=== PATIENT | male | born 1985 | race Caucasian/White ===

== ENCOUNTER 2023-01-08 04:56 | Emergency (ER) | payer MEDICAID ==
[~2023-01-08] VITALS: Ht 167.6 cm; Wt 95.3 kg
--- NOTE | 2023-01-08 05:00 | NUR ---
Patient to ER bed 08 to gown for evaluation. Side rails up. Report given to BYRON DOMINGO.
[2023-01-08 05:07] VITALS: BP_SYST 159
--- NOTE | 2023-01-08 05:12 | NUR ---
DR. HIDALGO AT BEDSIDE WITH PATIENT FOR MSE.
[2023-01-08] MEDS ORDERED: ONDANSETRON HCL 4 MG/2 ML VIAL IVP ONE (05:15)
[2023-01-08] MEDS ORDERED: NACL 0.9% 1,000 ML IV ONE (05:15)
[2023-01-08] MEDS ORDERED: MORPHINE 4 MG INJ. 4 MG/ML VIAL IVP ONE (05:15)
--- NOTE | 2023-01-08 05:28 | NUR ---
BLOOD COLLECTED AND WALKED OVER TO LAB.
--- NOTE | 2023-01-08 05:34 | NUR ---
# 20 gauge angiocath placed to RAC. Use of asceptic technique. Opsite placed over site. Blood return noted. Blood for lab drawn from site. Flushed with 10 cc of normal saline. No evidence of infiltration noted. Patient tolerated well.
--- NOTE | 2023-01-08 05:39 | NUR ---
PT PRESENTS TO ED C/O ABD PAIN, NAUSEA, LOSS OF APPETITE, VOMITTING, BRIGHT RED BLOOD MIXED IN STOOL, PT STATES HE HAS HX OF PANCREATITIS AND STATED HE COULD NOT SLEEP DUE TO THE DISCOMFORT AND WAS GOING TO SEE HIS PCP TODAY BUT HE KNEW HE WOULD POSSIBLY END UP ADMITTED. VSS, HOOKED UP TO VS MONITOR. ON APPEARANCE PT HAS BRUISES UNDER BOTH EYES AND BLOOD SHOT AND STATED HE WAS IN SITUATION LAST WEEK AND DID NOT WANT TO MENTION ANYTHING ELSE.
[2023-01-08 05:40] LABS: BASOPHILS # (AUTO) 0.1 K/uL (0.0-0.2); BASOPHILS % (AUTO) 1.1 % (0.0-2.0); EOSINOPHILS # (AUTO) 0.2 K/uL (0.0-0.4); EOSINOPHILS % (AUTO) 1.9 % (0.0-4.0); HEMATOCRIT 46.2 % (36-54); HEMOGLOBIN 15.9 g/dL (14.0-18.0); LYMPHOCYTES # (AUTO) 3.5 K/uL (1.0-5.5); LYMPHOCYTES % (AUTO) 41.1 % (20.5-51.5); MEAN CORPUSCULAR HEMOGLOBIN 31 pg (27-31); MEAN CORPUSCULAR HGB CONC 34 % (32-36); MEAN CORPUSCULAR VOLUME 91 fL (79.0-98.0); MONOCYTES # (AUTO) 0.8 K/uL (0.0-1.0); MONOCYTES % (AUTO) 9.4 % (1.7-9.3); NEUTROPHILS % (AUTO) 46.5 % (40.0-70.0); PLATELET COUNT (AUTO) 206 K/uL (130-430); RED BLOOD CELL COUNT(AUTO) 5.07 MIL/uL (4.2-6.2); RED CELL DISTRIBUTION WIDTH 13.6 % (9.0-15.0); WHITE BLOOD COUNT (AUTO) 8.6 K/uL (4.8-10.8)
--- NOTE | 2023-01-08 05:49 | NUR ---
AT BEDSIDE COLLECTED A OCCULT STOOL SAMPLE
[2023-01-08 06:04] LABS: CALCIUM 8.7 mg/dL (8.4-11.0); CREATININE 0.96 mg/dL (0.55-1.30); TOTAL BILIRUBIN 0.3 mg/dL (0.0-1.0)
--- NOTE | 2023-01-08 06:31 | NUR ---
PT TO CT
--- NOTE | 2023-01-08 06:40 | NUR ---
PT BACK FROM CT
--- NOTE | 2023-01-08 06:54 | NUR ---
PT RESTING PT STATES HE IS FEELING BETTER, CONNECTED TO VS MONITOR, SAFETY RAILS UP.
--- NOTE | 2023-01-08 07:44 | NUR ---
COVID SWAB COLLECTED AND SENT TO LAB.
[2023-01-08] MEDS ORDERED: IBUP-1971 PO (08:12)
[2023-01-08] MEDS ORDERED: HYDR-3917 PO (08:12)
--- NOTE | 2023-01-08 08:25 | NUR ---
Patient given written and verbal discharge instructions and verbalizes understanding. ER Dr Loza discussed with patient the results and treatment provided. Patient in stable condition. ID arm band removed. IV catheter removed intact and dressing applied, no active bleeding. Rx of Motrin and [place] given. Patient educated on pain management and to follow up with PMD. Pain Scale 0/10. Opportunity for questions provided and answered. Medication side effect fact sheet provided.
[2023-01-08 08:27] VITALS: BP_SYST 139
== END 2023-01-08 08:25 | disposition home or self-care (01) ==
LOC: SED 04:56
DX: R10.13 Epigastric pain (principal); R11.10 Vomiting, unspecified; R19.7 Diarrhea, unspecified; I10 Essential (primary) hypertension; F12.90 Cannabis use, unspecified, uncomplicated; Z79.899 Other long term (current) drug therapy; Z20.822 Contact with and (suspected) exposure to COVID-19
CPT/HCPCS: 99285; 74176; 96374; 71045; 96361; 96375; 87426; 80053; 83690; 85025; 36415; 76376; J2405; J2270; J7030

== ENCOUNTER 2023-01-09 01:26 | Inpatient (IN) | payer MEDICAID ==
[~2023-01-09] VITALS: Ht 167.6 cm; Wt 92.5 kg
[~2023-01-09 01:26] MED LIST: HYDR-3917 PO; IBUP-1971 PO
[2023-01-09 01:51] VITALS: BP_SYST 173
--- NOTE | 2023-01-09 01:54 | NUR ---
Patient triaged and placed in waiting room. VSS and patient appears in no acute distress at this time. Accompanied by SPOUSE, awaiting available bed, and MD notified of need for MSE.
[2023-01-09] MEDS ORDERED: FAMOTIDINE PF 20 MG/2 ML VIAL IVP ONE (02:15)
[2023-01-09] MEDS ORDERED: ONDANSETRON HCL 4 MG/2 ML VIAL IVP ONE (02:15)
[2023-01-09] MEDS ORDERED: NACL 0.9% 1,000 ML IV ONE (02:15)
[2023-01-09] MEDS ORDERED: MORPHINE 4 MG INJ. 4 MG/ML VIAL IVP ONE ×2 (02:15→03:45)
[2023-01-09 02:31] LABS: BASOPHILS # (AUTO) 0.1 K/uL (0.0-0.2); BASOPHILS % (AUTO) 0.7 % (0.0-2.0); EOSINOPHILS # (AUTO) 0.2 K/uL (0.0-0.4); EOSINOPHILS % (AUTO) 2.5 % (0.0-4.0); HEMATOCRIT 43.8 % (36-54); LYMPHOCYTES # (AUTO) 2.5 K/uL (1.0-5.5); LYMPHOCYTES % (AUTO) 26.9 % (20.5-51.5); MEAN CORPUSCULAR HEMOGLOBIN 31 pg (27-31); MEAN CORPUSCULAR HGB CONC 34 % (32-36); MEAN CORPUSCULAR VOLUME 91 fL (79.0-98.0); MONOCYTES # (AUTO) 0.8 K/uL (0.0-1.0); MONOCYTES % (AUTO) 9.1 % (1.7-9.3); NEUTROPHILS # (AUTO) 5.5 K/uL (1.8-7.7); NEUTROPHILS % (AUTO) 60.8 % (40.0-70.0); PLATELET COUNT (AUTO) 188 K/uL (130-430); RED CELL DISTRIBUTION WIDTH 13.6 % (9.0-15.0); WHITE BLOOD COUNT (AUTO) 9.1 K/uL (4.8-10.8)
[2023-01-09 02:50] LABS: ALBUMIN 3.9 g/dL (3.4-4.8); CALCIUM 8.6 mg/dL (8.4-11.0); CREATININE 0.86 mg/dL (0.55-1.30); TOTAL BILIRUBIN 0.6 mg/dL (0.0-1.0)
--- NOTE | 2023-01-09 03:48 | NUR ---
pt c/o pancreatitis pain 08/10. pt a/o x 4 and ambulatory. present at bedside. pt was seen yesterday and sent home
--- NOTE | 2023-01-09 03:49 | NUR ---
per ok to give small omount of ice chips
[2023-01-09] MEDS ORDERED: D5NS 1,000 ML IV SCH (04:30)
[2023-01-09] MEDS ORDERED: MORPHINE 2 MG/ML INJ. SYRINGE IVP PRN ×2 (04:30)
[2023-01-09] MEDS: cefTRIAXone 1 GM IVPB PREMIX 50 ML IV SCH (05:33)
--- NOTE | 2023-01-09 05:37 | NUR ---
Negative Covid test result within 24 hours used for admission
--- NOTE | 2023-01-09 05:37 | NUR ---
Admit bed requested Patient will be admitted to care of Admitted to Telemetry unit. Diagnosis Acute Pancreatitis Inpatient (Yes or No) yes Observation (Yes or No) no Orientation concerns or request close to nursing station (Yes or No) no Covid Status negative On vent or bipap no Isolation requirements no Needs a sitter no From Home (Yes or if No enter name of facility) yes Requires Dialysis (Yes or No) no Med Rec Completed (Yes of No) yes
--- NOTE | 2023-01-09 06:54 | NUR ---
CONSULTATION PAGED/CALLED Reason for Consultation: [] ACUTE PANCREATITIS Person Who was Notified: [] TATIANNA Consulting Physician: [] DR PROSPER MENDIOLA Splicing Technician Specialty: [] GI Ordering Physician: [] DR YOUNG
--- NOTE | 2023-01-09 06:55 | NUR ---
CONSULTATION PAGED/CALLED Reason for Consultation: [] ACUTE PANCREATITIS Person Who was Notified: [] TATIANNA Consulting Physician: [] DR CECILY DASILVA Seafood Processor Specialty: [] GI Ordering Physician: [] DR YOUNG
--- NOTE | 2023-01-09 08:30 | NUR ---
ADMISSION NOTE Received report from [facility] nurse patient from ER via [facility] at 0645am . Patient admitted with diagnosis of Acute Pancreatitis Patient is awake, alert, oriented X4. c/o mild abdominal pain with hypoactive bowel sounds to all 4 quadrant. Respiration even and unlabored no signs of distress. IV infusing to left forearm patent. Patient oriented to hospital room, call light, toileting, and pain management. All safety secured, bed in low position and call light w/in reached.
[2023-01-09] MEDS: HYDROmorphone 1 MG/ML INJ. CARTRIDGE IVP PRN ×6 (08:59→22:28)
[2023-01-09 09:01] VITALS: BP_SYST 151
[2023-01-09 09:11] LABS: BILIRUBIN,URINE NEGATIVE (NEGATIVE); BLOOD, URINE NEGATIVE (NEGATIVE); CLARITY/URINE CLEAR (CLEAR); COLOR,URINE YELLOW (YELLOW); GLUCOSE,URINE NEGATIVE (NEGATIVE); KETONES,URINE NEGATIVE (NEGATIVE); LEUKOCYTE ESTERASE ,URINE NEGATIVE (NEGATIVE); NITRITE, URINE NEGATIVE (NEGATIVE); PROTEIN URINE TRACE (NEGATIVE); UROBILINOGEN,URINE 0.2 (0.2-1.0)
[2023-01-09 10:34] LABS: CHOLESTEROL 173 mg/dL (<200); HDL CHOLESTEROL 77 mg/dL (>45); TRIGLYCERIDES 88 mg/dL (30-150)
[2023-01-09] MEDS: LR 1,000 ML IV SCH ×4 (11:00→23:00)
[2023-01-09] MEDS: ONDANSETRON HCL 4 MG/2 ML VIAL IVP PRN (11:48)
[2023-01-09 12:23] VITALS: BP_SYST 169
[2023-01-09 12:45] LABS: CHOLESTEROL 158 mg/dL (<200); HDL CHOLESTEROL 77 mg/dL (>45); LIPASE 1869 U/L (73-393); TRIGLYCERIDES 81 mg/dL (30-150)
[2023-01-09 14:41] VITALS: BP_SYST 147
[2023-01-09 17:12] VITALS: BP_SYST 161
--- NOTE | 2023-01-09 18:28 | NUR ---
Patient resting comfortable in bed,medicated throughout shift, no signs of distress, maintain safety will endorse.
--- NOTE | 2023-01-09 19:10 | NUR ---
ERCRIVED REPORT ON PATIENT FROM BYRON EVERETT, ASSUMED CARE, AND STARTED ASSESSMENT. Addendum: 01/09/23 at 2019 by [facility] BYRON Eli RN RECEIVED REPORT ON PATIENT FROM BYRON EVERETT, ASSUMED CARE, AND STARTED ASSESSMENT.
[2023-01-09 20:00] VITALS: BP_SYST 161
--- NOTE | 2023-01-09 20:08 | NUR ---
MEDICATED PATIENT WITH DILAUDID 1MG, IVP, FOR C/O PAIN AT 8/10 PER MD ORDERS. YANCI CONTINUE TO MONITOR AND ASSESS FOR SAFETY AND COMFORT.
--- NOTE | 2023-01-09 22:19 | NUR ---
MEDICATED PATIENT WITH DILAUDID 1MG IVP FOR PAIN PER MD ORDERS. WILL CONTINUE TO MONITOR AND ASSESS FOR SAFETY AND COMFORT.
[2023-01-10] MEDS: ONDANSETRON HCL 4 MG/2 ML VIAL IVP PRN (00:07)
[2023-01-10] MEDS: HYDROmorphone 1 MG/ML INJ. CARTRIDGE IVP PRN ×4 (00:30→10:42)
[2023-01-10] MEDS: LR 1,000 ML IV SCH ×6 (03:00→23:52)
[2023-01-10 04:00] VITALS: BP_SYST 153
[2023-01-10 06:22] VITALS: BP_SYST 159
--- NOTE | 2023-01-10 07:20 | NUR ---
REPORT GIVEN TO KARLOS AND CARE WAS TURNED OVER TO HER.
[2023-01-10 07:54] VITALS: BP_SYST 138
--- NOTE | 2023-01-10 08:00 | NUR ---
Initial notes Received patient awake in bed, no c/o pain/SOB, respiration even and unlabored no signs of distress. IV infusing to left forearm patent. All safety secured, bed in low position and call light w/in reached.
[2023-01-10 08:06] LABS: BASOPHILS % (AUTO) 0.4 % (0.0-2.0); EOSINOPHILS # (AUTO) 0.2 K/uL (0.0-0.4); EOSINOPHILS % (AUTO) 2.2 % (0.0-4.0); HEMATOCRIT 42.3 % (36-54); HEMOGLOBIN 14.7 g/dL (14.0-18.0); LYMPHOCYTES % (AUTO) 26.3 % (20.5-51.5); MEAN CORPUSCULAR HEMOGLOBIN 32 pg (27-31); MEAN CORPUSCULAR HGB CONC 35 % (32-36); MEAN CORPUSCULAR VOLUME 91 fL (79.0-98.0); MONOCYTES # (AUTO) 0.7 K/uL (0.0-1.0); NEUTROPHILS # (AUTO) 4.7 K/uL (1.8-7.7); NEUTROPHILS % (AUTO) 62.1 % (40.0-70.0); PLATELET COUNT (AUTO) 153 K/uL (130-430); RED BLOOD CELL COUNT(AUTO) 4.65 MIL/uL (4.2-6.2); RED CELL DISTRIBUTION WIDTH 13.5 % (9.0-15.0); WHITE BLOOD COUNT (AUTO) 7.6 K/uL (4.8-10.8)
[2023-01-10 08:12] LABS: CALCIUM 8.9 mg/dL (8.4-11.0); CREATININE 0.62 mg/dL (0.55-1.30)
[2023-01-10] MEDS: PANTOPRAZOLE SODIUM 40 MG/VIAL (PROTONIX) IVP SCH (08:23)
[2023-01-10] MEDS: cefTRIAXone 1 GM IVPB PREMIX 50 ML IV SCH (08:25)
[2023-01-10 12:45] VITALS: BP_SYST 139
[2023-01-10] MEDS: MORPHINE 2 MG/ML INJ. SYRINGE IVP PRN ×3 (13:09→21:58)
[2023-01-10 16:20] VITALS: BP_SYST 136
--- NOTE | 2023-01-10 18:33 | NUR ---
Patient stable, patient medicated throughout shift verbalizes " pain is decreasing and getting better" . IV to left AC patent, will endorse to oncoming nurse.
[2023-01-10 19:55] VITALS: BP_SYST 142
[2023-01-11] MEDS: MORPHINE 2 MG/ML INJ. SYRINGE IVP PRN ×5 (02:11→21:32)
[2023-01-11] MEDS: LR 1,000 ML IV SCH ×5 (02:16→19:38)
[2023-01-11 04:58] LABS: CALCIUM 8.9 mg/dL (8.4-11.0); CREATININE 0.78 mg/dL (0.55-1.30)
--- NOTE | 2023-01-11 06:14 | NUR ---
PT ASLEEP IN BED, AOX4, NO CHANGE DURING SHIFT, NORMAL RESPIRATION, NO C/O SOB, CP, N/V, ABD PAIN CONTROLLED WITH MORPHINE AND WAS EFFECTIVE PER PT, IVF LR AT 250 TO LAC W/O INFILTRATION, PT AMBULATORY TO RESTROOM W/O ASSIST, VOIDING NORMAL, TOLERATING CLR DIET, SAFETY PREC MAINTAINED, CALL LIGHT WITHIN REACH, WILL ENDORSE TO INCOMING RN
--- NOTE | 2023-01-11 06:37 | NUR ---
WILFRED COLLECTED AND SENT THIS AM
--- NOTE | 2023-01-11 07:05 | NUR ---
receive the patient from the mine shifter rn in rm [id number] aox4 admitting diagnosis of acute pancreatitis . will continue to monitor
[2023-01-11 07:59] LABS: BARBITURATE, URINE NEGATIVE (NEG <=200); BENZODIAZEPINE, URINE NEGATIVE (NEG <=150); CANNABINOID, URINE POSITIVE (NEG <=50); COCAINE, URINE NEGATIVE (NEG <=150); METHAMPHETAMINES SCREEN,URINE NEGATIVE (NEG <=500); OPIATE, URINE POSITIVE (NEG <=100); PHENCYCLIDINE SCREEN,URINE NEGATIVE (NEG <=25); UR TRICYCLIC ANTIDEPRESSANTS NEGATIVE (NEG <=300); URINE AMPHETAMINE NEGATIVE (NEG <=500); URINE METHADONE NEGATIVE (NEG <=200); URINE OXYCODONE SCREEN NEGATIVE (NEG <=100); URINE PROPOXYPHENE SCREEN NEGATIVE (NEG <=300)
[2023-01-11] MEDS: cefTRIAXone 1 GM IVPB PREMIX 50 ML IV SCH (09:43)
[2023-01-11] MEDS: PANTOPRAZOLE SODIUM 40 MG/VIAL (PROTONIX) IVP SCH (09:44)
--- NOTE | 2023-01-11 10:30 | NUR ---
gsave morphine 1 mg for pain on right abdominal . 8/10 pain scale . will continue to monitor
[2023-01-11 11:59] VITALS: BP_SYST 151
--- NOTE | 2023-01-11 13:30 | NUR ---
gave morphine 1mg on right abdominal pain 8/10 pain scale as stated by the patient . will continue to monitor
[2023-01-11 17:11] VITALS: BP_SYST 139
--- NOTE | 2023-01-11 17:52 | NUR ---
urine drug screen has been resulted positive on cannabis , opiates
--- NOTE | 2023-01-11 18:22 | NUR ---
will endorse to shift boss rn for continuity for continuity of care
--- NOTE | 2023-01-11 19:48 | NUR ---
RECEIVED PT LYING IN BED, NO DISTRESS NOTED, DENIES PAIN. AAOX4, O2 SAT 98% ON RA, LUNGS CLEAR. PALPABLE PULSE TO ALL EXTREMITIES. ABD SOFT, TENDER TO LIGHT TOUCH.
[2023-01-11 20:00] VITALS: BP_SYST 142
[2023-01-12] MEDS: LR 1,000 ML IV SCH ×7 (00:18→23:23)
[2023-01-12 01:00] VITALS: BP_SYST 140
[2023-01-12] MEDS: MORPHINE 2 MG/ML INJ. SYRINGE IVP PRN ×4 (03:17→20:39)
[2023-01-12] MEDS ORDERED: cloNIDine HCL 0.1 MG TABLET PO PRN (08:45)
[2023-01-12] MEDS ORDERED: amLODIPine BESYLATE 10 MG TABLET PO ONE (09:00)
[2023-01-12 09:04] LABS: CHOLESTEROL 170 mg/dL (<200); HDL CHOLESTEROL 65 mg/dL (>45); TRIGLYCERIDES 75 mg/dL (30-150)
[2023-01-12] MEDS: PANTOPRAZOLE SODIUM 40 MG/VIAL (PROTONIX) IVP SCH (09:06)
[2023-01-12] MEDS: cefTRIAXone 1 GM IVPB PREMIX 50 ML IV SCH (09:19)
[2023-01-12 11:04] VITALS: BP_SYST 150
--- NOTE | 2023-01-12 14:30 | NUR ---
Social Service Assessment: The patient is a 37-year-old male who is alert and oriented. I completed an initial assessment with the patient at bedside. I introduced myself and the patient was in agreement to speaking with me. 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 Per patient, he was using no assistive devices prior to his admission here at the hospital. He states he was independent with his care needs. The patient does not have a Power of Hyperbaric Technician. Information was offered to him to learn more about a POA, however the patient declined the information. His assigned PCP is Dr. Sykes in [place]. The discharge plan is to go to his sisters home in [place]. The patient was advised that at time of discharge, he will be assessed for appropriate needs and services. Per patient, there are no anticipated discharge needs prior to discharge. At time of discharge, the patient states his sister will transport him home. Prior to ending my conversation with the patient, we discussed the patients alcohol consumption and the desire to receive some material related to substance treatment. The patient was not open to resources and referrals that would help contribute to the patients sobriety, as he stated he has a plan to admit himself into the [facility] in [place] after he is discharged from the hospital. Per patient, he and his correction officer reformatory from [facility] are in agreement with is sobriety plan. I advised the patient that should additional information be needed or if he needed to have further discussion, he could always request to see the long term care social worker again. At this time, there are no further needs from addiction social worker. Addendum: 01/13/23 at 1020 by Polina VARGAS Amended: Links added.
[2023-01-12 17:57] VITALS: BP_SYST 140
--- NOTE | 2023-01-12 18:00 | NUR ---
A/Ox4,vss,c/o abdominal pain,give morphine 2 mg IV as prn order for pain IVF continue infusing,tolerated regular diet,needs attended,call light & personal items within pt reach,safety maintained.continue to monitor pt.
[2023-01-12 19:55] VITALS: BP_SYST 140
--- NOTE | 2023-01-12 19:55 | NUR ---
RECEIVED PT IN BED, AOX4, EVEN AND UNLABORED RESPIRATION, LR AT 250CC ONGOING TO LFA, PT STATED HE AD ABD PAIN 2 BUT WOULD PREFER NOT TO GET PAIN MED NOW UNTIL A LITTLE LATER. INSTRUCT PT TO CALL FOR PAIN MED IF NEEDED. PT VERBALIZED UNDERSTANDING, WILL CONTINUE WITH POC
[2023-01-13 00:14] VITALS: BP_SYST 143
[2023-01-13] MEDS: LR 1,000 ML IV SCH ×3 (02:23→10:34)
[2023-01-13] MEDS: MORPHINE 2 MG/ML INJ. SYRINGE IVP PRN (06:01)
--- NOTE | 2023-01-13 06:50 | NUR ---
PT ASLEEP IN BED, AOX4, NO CHANGE DURING SHIFT, NORMAL RESPIRATION, NO C/O SOB, CP, N/V, ABD PAIN CONTROLLED WITH MORPHINE AND WAS EFFECTIVE PER PT, IVF LR AT 250 TO LAC W/O INFILTRATION, PT AMBULATORY TO RESTROOM W/O ASSIST, VOIDING NORMAL, TOLERATING REG DIET, SAFETY PREC MAINTAINED, CALL LIGHT WITHIN REACH, WILL ENDORSE TO INCOMING RN
[2023-01-13 07:09] LABS: BASOPHILS # (AUTO) 0.1 K/uL (0.0-0.2); BASOPHILS % (AUTO) 0.8 % (0.0-2.0); EOSINOPHILS # (AUTO) 0.1 K/uL (0.0-0.4); EOSINOPHILS % (AUTO) 1.9 % (0.0-4.0); HEMATOCRIT 46.2 % (36-54); LYMPHOCYTES # (AUTO) 2.8 K/uL (1.0-5.5); LYMPHOCYTES % (AUTO) 39.3 % (20.5-51.5); MEAN CORPUSCULAR HEMOGLOBIN 32 pg (27-31); MEAN CORPUSCULAR HGB CONC 35 % (32-36); MEAN CORPUSCULAR VOLUME 92 fL (79.0-98.0); MONOCYTES # (AUTO) 0.9 K/uL (0.0-1.0); MONOCYTES % (AUTO) 12.3 % (1.7-9.3); NEUTROPHILS # (AUTO) 3.2 K/uL (1.8-7.7); NEUTROPHILS % (AUTO) 45.7 % (40.0-70.0); PLATELET COUNT (AUTO) 200 K/uL (130-430); RED BLOOD CELL COUNT(AUTO) 5.04 MIL/uL (4.2-6.2); RED CELL DISTRIBUTION WIDTH 13.6 % (9.0-15.0); WHITE BLOOD COUNT (AUTO) 7.1 K/uL (4.8-10.8)
[2023-01-13 08:04] LABS: CALCIUM 9.6 mg/dL (8.4-11.0); CREATININE 0.8 mg/dL (0.55-1.30)
[2023-01-13] MEDS ORDERED: amLODIPine BESYLATE 10 MG TABLET PO SCH (09:00)
[2023-01-13] MEDS: PANTOPRAZOLE SODIUM 40 MG/VIAL (PROTONIX) IVP SCH (09:04)
[2023-01-13] MEDS: cefTRIAXone 1 GM IVPB PREMIX 50 ML IV SCH (09:04)
[2023-01-13] MEDS: ONDANSETRON HCL 4 MG/2 ML VIAL IVP PRN (09:20)
[2023-01-13] MEDS ORDERED: NALOXONE HCL 0.4 MG/ML AMP (NARCAN) IVP PRN (09:30)
[2023-01-13] MEDS: HYDROcodone/ACETAMIN 5-325 MG TAB (NORCO/ VICODIN) PO PRN ×2 (10:34→14:39)
[2023-01-13 12:18] VITALS: BP_SYST 149
[2023-01-13 16:25] VITALS: BP_SYST 147
--- NOTE | 2023-01-14 12:27 | NUR ---
PT PACKET (CLINICALS) WERE FAXED TO [facility]. ATTN: PENG LUTZ P#[phone]. FOR REFERENCE:
== END 2023-01-13 16:55 | disposition home or self-care (01) | DRG 282 ==
LOC: SED 01:26 → STU 04:16 → SMU 01-10 10:54
PROVIDERS: ADMIT Internal Medicine; ATTEND Internal Medicine
DX: K85.20 Alcohol induced acute pancreatitis without necrosis or infection (principal); K76.0 Fatty (change of) liver, not elsewhere classified; F10.288 Alcohol dependence with other alcohol-induced disorder; Z20.822 Contact with and (suspected) exposure to COVID-19; Z79.899 Other long term (current) drug therapy; Z56.0 Unemployment, unspecified; Z72.0 Tobacco use
CPT/HCPCS: 36415; 76700-TC; 80048; 80053; 80061; 80307; 81003; 83037; 83605; 83690; 85025; 93005; 99285; C9113; G0378; J0696; J1170; J2270; J2405; J3490

== ENCOUNTER 2023-02-01 22:48 | Inpatient (IN) | payer MEDICAID ==
[~2023-02-01] VITALS: Ht 170.2 cm; Wt 88.6 kg
[2023-02-01 23:00] VITALS: BP_SYST 179
[2023-02-02] MEDS ORDERED: ONDANSETRON HCL 4 MG/2 ML VIAL IVP ONE ×2 (00:15→04:45)
[2023-02-02] MEDS ORDERED: NACL 0.9% 2,000 ML IV ONE (00:15)
[2023-02-02] MEDS ORDERED: FAMOTIDINE PF 20 MG/2 ML VIAL IVP ONE (00:15)
[2023-02-02] MEDS ORDERED: MORPHINE 4 MG INJ. 4 MG/ML VIAL IVP ONE (00:15)
[2023-02-02 01:03] LABS: BASOPHILS # (AUTO) 0.1 K/uL (0.0-0.2); BASOPHILS % (AUTO) 0.7 % (0.0-2.0); EOSINOPHILS % (AUTO) 0.1 % (0.0-4.0); HEMOGLOBIN 15.5 g/dL (14.0-18.0); LYMPHOCYTES # (AUTO) 1.6 K/uL (1.0-5.5); LYMPHOCYTES % (AUTO) 9.8 % (20.5-51.5); MEAN CORPUSCULAR HEMOGLOBIN 31 pg (27-31); MEAN CORPUSCULAR HGB CONC 35 % (32-36); MEAN CORPUSCULAR VOLUME 90 fL (79.0-98.0); MONOCYTES % (AUTO) 6.3 % (1.7-9.3); NEUTROPHILS # (AUTO) 13.6 K/uL (1.8-7.7); NEUTROPHILS % (AUTO) 83.1 % (40.0-70.0); PLATELET COUNT (AUTO) 276 K/uL (130-430); RED BLOOD CELL COUNT(AUTO) 5.01 MIL/uL (4.2-6.2); RED CELL DISTRIBUTION WIDTH 13.6 % (9.0-15.0); WHITE BLOOD COUNT (AUTO) 16.3 K/uL (4.8-10.8)
[2023-02-02 01:32] LABS: ALBUMIN 4.3 g/dL (3.4-4.8); CALCIUM 8.7 mg/dL (8.4-11.0); CREATININE 1.02 mg/dL (0.55-1.30); TOTAL BILIRUBIN 0.6 mg/dL (0.0-1.0)
[2023-02-02 01:35] LABS: PHOSPHORUS 3.2 mg/dL (2.7-4.5)
[2023-02-02] MEDS ORDERED: cefTRIAXone 1 GM in D5W 50 ML IV ONE (02:15)
[2023-02-02] MEDS ORDERED: metroNIDAZOLE 500 mg/NS 100 ML IV ONE (02:15)
[2023-02-02] MEDS ORDERED: cefTRIAXone 1 GM IVPB PREMIX 50 ML IV ONE (02:17)
[2023-02-02] MEDS ORDERED: LOSA50TA3 PO ×2 (02:37→02:41)
[2023-02-02] MEDS ORDERED: ASPI-1393 PO (02:41)
[2023-02-02] MEDS ORDERED: MORPHINE 2 MG/ML INJ. SYRINGE IVP PRN ×2 (03:00→07:15)
[2023-02-02] MEDS: D5NS 1,000 ML IV SCH ×4 (04:18→18:26)
[2023-02-02] MEDS ORDERED: ONDANSETRON HCL 4 MG/2 ML VIAL ONE (04:43)
[2023-02-02] MEDS ORDERED: LORazepam 2 MG/ML VIAL IVP ONE (05:00)
[2023-02-02 05:33] VITALS: BP_SYST 152
[2023-02-02 08:00] VITALS: BP_SYST 189
[2023-02-02] MEDS ORDERED: MAGNESIUM SULFATE 50 ML IV PRN (08:30)
[2023-02-02] MEDS ORDERED: ONDANSETRON HCL 4 MG/2 ML VIAL IVP PRN (08:30)
[2023-02-02] MEDS ORDERED: MUPIROCIN 2% TOPICAL OINTMENT 22 GM NS PRN (08:30)
[2023-02-02] MEDS ORDERED: NALOXONE HCL 0.4 MG/ML AMP (NARCAN) IVP PRN (08:30)
[2023-02-02] MEDS ORDERED: ZOLPIDEM TARTRATE 5 MG TABLET PO PRN (08:30)
[2023-02-02] MEDS ORDERED: ACETAMINOPHEN 325 MG TABLET PO PRN ×2 (08:30)
[2023-02-02] MEDS ORDERED: POTASSIUM CHLORIDE 20 MEQ TAB.PRT.SR PO PRN (08:30)
[2023-02-02] MEDS ORDERED: DOCUSATE SODIUM 100 MG CAPSULE PO PRN (08:30)
[2023-02-02 09:05] LABS: CHOLESTEROL 177 mg/dL (<200); HDL CHOLESTEROL 83 mg/dL (>45); TRIGLYCERIDES 113 mg/dL (30-150)
[2023-02-02] MEDS: LORazepam 2 MG/ML VIAL IVP PRN ×2 (09:13→19:28)
[2023-02-02] MEDS ORDERED: chlordiazePOXIDE HCL 25 MG CAPSULE PO ONE (09:15)
[2023-02-02] MEDS: MORPHINE 2 MG/ML INJ. SYRINGE IVP PRN ×4 (10:24→22:22)
[2023-02-02] MEDS: LOSARTAN POTASSIUM 50 MG TABLET (COZAAR) PO SCH (10:28)
[2023-02-02 11:27] VITALS: BP_SYST 169
[2023-02-02] MEDS: metroNIDAZOLE 500 mg/NS 100 ML IV SCH ×2 (13:47→21:45)
[2023-02-02 15:21] VITALS: BP_SYST 155
[2023-02-02] MEDS: chlordiazePOXIDE HCL 25 MG CAPSULE PO SCH ×2 (15:28→21:45)
[2023-02-02 19:46] LABS: BARBITURATE, URINE NEGATIVE (NEG <=200); METHAMPHETAMINES SCREEN,URINE NEGATIVE (NEG <=500); URINE AMPHETAMINE NEGATIVE (NEG <=500); URINE METHADONE NEGATIVE (NEG <=200)
[2023-02-02 19:47] LABS: BENZODIAZEPINE, URINE POSITIVE (NEG <=150); CANNABINOID, URINE POSITIVE (NEG <=50); COCAINE, URINE POSITIVE (NEG <=150); OPIATE, URINE POSITIVE (NEG <=100); PHENCYCLIDINE SCREEN,URINE NEGATIVE (NEG <=25); UR TRICYCLIC ANTIDEPRESSANTS NEGATIVE (NEG <=300); URINE OXYCODONE SCREEN NEGATIVE (NEG <=100); URINE PROPOXYPHENE SCREEN NEGATIVE (NEG <=300)
[2023-02-02 20:00] VITALS: BP_SYST 141
[2023-02-03] VITALS: BP_SYST 135
[2023-02-03] MEDS: D5NS 1,000 ML IV SCH ×2 (01:10→05:46)
[2023-02-03] MEDS: LORazepam 2 MG/ML VIAL IVP PRN ×2 (01:17→06:44)
[2023-02-03] MEDS: MORPHINE 2 MG/ML INJ. SYRINGE IVP PRN ×2 (02:09→05:47)
[2023-02-03] MEDS: metroNIDAZOLE 500 mg/NS 100 ML IV SCH (05:45)
[2023-02-03 06:43] LABS: BASOPHILS # (AUTO) 0.1 K/uL (0.0-0.2); BASOPHILS % (AUTO) 0.7 % (0.0-2.0); EOSINOPHILS # (AUTO) 0.1 K/uL (0.0-0.4); EOSINOPHILS % (AUTO) 1.6 % (0.0-4.0); HEMATOCRIT 42.4 % (36-54); HEMOGLOBIN 14.7 g/dL (14.0-18.0); MEAN CORPUSCULAR HEMOGLOBIN 31 pg (27-31); MEAN CORPUSCULAR HGB CONC 35 % (32-36); MEAN CORPUSCULAR VOLUME 89 fL (79.0-98.0); MONOCYTES # (AUTO) 0.6 K/uL (0.0-1.0); MONOCYTES % (AUTO) 7.9 % (1.7-9.3); NEUTROPHILS # (AUTO) 5.1 K/uL (1.8-7.7); NEUTROPHILS % (AUTO) 64.8 % (40.0-70.0); PLATELET COUNT (AUTO) 207 K/uL (130-430); RED BLOOD CELL COUNT(AUTO) 4.74 MIL/uL (4.2-6.2); RED CELL DISTRIBUTION WIDTH 13.3 % (9.0-15.0); WHITE BLOOD COUNT (AUTO) 7.8 K/uL (4.8-10.8)
[2023-02-03 07:05] LABS: CALCIUM 8.3 mg/dL (8.4-11.0); CREATININE 0.76 mg/dL (0.55-1.30)
[2023-02-03] MEDS ORDERED: METR-154 PO (08:14)
[2023-02-03] MEDS ORDERED: ACETAMINOPHEN 325 MG TABLET PO PRN (08:15)
[2023-02-03] MEDS: LOSARTAN POTASSIUM 50 MG TABLET (COZAAR) PO SCH (09:04)
[2023-02-03 09:07] VITALS: BP_SYST 180
== END 2023-02-03 08:27 | disposition home or self-care (01) | DRG 720 ==
LOC: SED 22:48 → SMU 02-02 02:47
PROVIDERS: ADMIT General Practice; ATTEND General Practice
DX: A41.9 Sepsis, unspecified organism (principal); K85.20 Alcohol induced acute pancreatitis without necrosis or infection; F10.10 Alcohol abuse, uncomplicated; Y90.9 Presence of alcohol in blood, level not specified; F14.10 Cocaine abuse, uncomplicated; Z20.822 Contact with and (suspected) exposure to COVID-19; F12.10 Cannabis abuse, uncomplicated; I10 Essential (primary) hypertension; Z79.82 Long term (current) use of aspirin; Z79.899 Other long term (current) drug therapy; A09 Infectious gastroenteritis and colitis, unspecified
CPT/HCPCS: 36415; 76376; 80048; 80053; 80061; 80307; 83037; 83605; 83690; 83735; 84100; 85025; 87040; 87081; 96361; 96365; 96368; 96375; 96376; 99291; J0696; J1956; J2060; J2270; J2405; J3490

== ENCOUNTER 2023-10-20 17:36 | Emergency (ER) | payer MEDICAID ==
[~2023-10-20] VITALS: Ht 167.6 cm; Wt 90.7 kg
[~2023-10-20 17:36] MED LIST changes: +ASPI-1393 PO; -IBUP-1971 PO; +LOSA-413 PO; +METR-154 PO
[2023-10-20 17:50] VITALS: BP_SYST 149; PULSE 85; RESP 18; TEMP 98.3; O2SAT 98
[2023-10-20] MEDS ORDERED: fentaNYL CITRATE/PF 100 MCG/2 ML AMP IM ONE (18:00)
[2023-10-20] MEDS ORDERED: HYDROcodone/ACETAMIN 5-325 MG TAB (NORCO/ VICODIN) ONE (19:38)
[2023-10-20] MEDS ORDERED: HYDROcodone/ACETAMIN 5-325 MG TAB (NORCO/ VICODIN) PO ONE (19:45)
[2023-10-20] MEDS ORDERED: IBUP-1970 PO ×3 (20:26→20:45)
[2023-10-20] MEDS ORDERED: CEPH-548 PO ×3 (20:26→20:45)
[2023-10-20] MEDS ORDERED: HYDR-3917 PO ×3 (20:26→20:45)
[2023-10-20 20:49] VITALS: BP_SYST 140; PULSE 80; RESP 17; TEMP 98; O2SAT 99
== END 2023-10-20 20:49 | disposition home or self-care (01) ==
LOC: SED 17:36
DX: S61.313A Laceration without foreign body of left middle finger with damage to nail, initial encounter (principal); I10 Essential (primary) hypertension; Z79.899 Other long term (current) drug therapy; W29.8XXA Contact with other powered hand tools and household machinery, initial encounter; Y93.89 Activity, other specified; Y92.89 Other specified places as the place of occurrence of the external cause; Y99.8 Other external cause status
CPT/HCPCS: 99283; 73140; 12001; 96372; J3010

== ENCOUNTER 2024-04-18 19:48 | Emergency (ER) | payer MEDICAID ==
[~2024-04-18] VITALS: Ht 170.2 cm; Wt 89.8 kg
[~2024-04-18 19:48] MED LIST changes: +CEPH-548 PO; +IBUP-1970 PO
[2024-04-18 20:31] VITALS: BP_SYST 147; PULSE 101; RESP 20; TEMP 98.3; O2SAT 95
[2024-04-18 20:39] LABS: BASOPHILS # (AUTO) 0.1 K/uL (0.0-0.2); EOSINOPHILS % (AUTO) 0.2 % (0.0-4.0); HEMOGLOBIN 16.8 g/dL (14.0-18.0); LYMPHOCYTES # (AUTO) 3.1 K/uL (1.0-5.5); LYMPHOCYTES % (AUTO) 39.9 % (20.5-51.5); MEAN CORPUSCULAR HEMOGLOBIN 32 pg (27-31); MEAN CORPUSCULAR HGB CONC 35 % (32-36); MEAN CORPUSCULAR VOLUME 92 fL (79.0-98.0); MONOCYTES # (AUTO) 0.6 K/uL (0.0-1.0); MONOCYTES % (AUTO) 8.2 % (1.7-9.3); NEUTROPHILS # (AUTO) 3.9 K/uL (1.8-7.7); NEUTROPHILS % (AUTO) 50.7 % (40.0-70.0); PLATELET COUNT (AUTO) 217 K/uL (130-430); RED BLOOD CELL COUNT(AUTO) 5.25 MIL/uL (4.2-6.2); RED CELL DISTRIBUTION WIDTH 14.8 % (9.0-15.0); WHITE BLOOD COUNT (AUTO) 7.7 K/uL (4.8-10.8)
[2024-04-18 20:59] LABS: ALBUMIN 3.9 g/dL (3.4-4.8); BILIRUBIN,DIRECT 0.1 mg/dL (0.0-0.3); CALCIUM 8.5 mg/dL (8.4-11.0); CREATININE 1.12 mg/dL (0.55-1.30); TOTAL BILIRUBIN 0.4 mg/dL (0.0-1.0)
[2024-04-18] MEDS: NACL 0.9% 1,000 ML IV ONE (21:33)
[2024-04-18] MEDS: ONDANSETRON HCL 4 MG/2 ML VIAL IVP ONE (21:47)
[2024-04-18] MEDS: MORPHINE 4 MG INJ. 4 MG/ML VIAL IVP ONE (21:49)
[2024-04-18] MEDS: MAG HYDROX/AL HYDROX/SIMETH 30 ML, DICYCLOMINE HCL 20 MG, LIDOCAINE VISCOUS 2% 15ML (PO... PO ONE (22:08)
[2024-04-18 22:35] LABS: BILIRUBIN,URINE NEGATIVE (NEGATIVE); BLOOD, URINE NEGATIVE (NEGATIVE); CLARITY/URINE CLEAR (CLEAR); COLOR,URINE YELLOW (YELLOW); GLUCOSE,URINE NEGATIVE (NEGATIVE); KETONES,URINE NEGATIVE (NEGATIVE); LEUKOCYTE ESTERASE ,URINE TRACE (NEGATIVE); NITRITE, URINE NEGATIVE (NEGATIVE); PROTEIN URINE NEGATIVE (NEGATIVE); UROBILINOGEN,URINE 0.2 (0.2-1.0)
[2024-04-18 22:50] LABS: BARBITURATE, URINE NEGATIVE (NEG <=200); BENZODIAZEPINE, URINE NEGATIVE (NEG <=150); CANNABINOID, URINE POSITIVE (NEG <=50); COCAINE, URINE NEGATIVE (NEG <=150); METHAMPHETAMINES SCREEN,URINE NEGATIVE (NEG <=500); OPIATE, URINE POSITIVE (NEG <=100); PHENCYCLIDINE SCREEN,URINE NEGATIVE (NEG <=25); UR TRICYCLIC ANTIDEPRESSANTS NEGATIVE (NEG <=300); URINE AMPHETAMINE NEGATIVE (NEG <=500); URINE METHADONE NEGATIVE (NEG <=200); URINE OXYCODONE SCREEN NEGATIVE (NEG <=100)
[2024-04-18 22:59] LABS: BACTERIA,URINE FEW /HPF (None Seen); RBC,URINE NONE SEEN /HPF (0-3)
[2024-04-18 23:00] LABS: MUCUS,URINE None Seen /LPF (None Seen)
[2024-04-19 01:34] VITALS: BP_SYST 139; PULSE 84; RESP 18; TEMP 98.9; O2SAT 93
== END 2024-04-19 00:30 | disposition home or self-care (01) ==
LOC: SED 19:48
DX: R10.13 Epigastric pain (principal); R11.2 Nausea with vomiting, unspecified; F12.90 Cannabis use, unspecified, uncomplicated; I10 Essential (primary) hypertension; K21.9 Gastro-esophageal reflux disease without esophagitis; Z79.899 Other long term (current) drug therapy; Z79.2 Long term (current) use of antibiotics
CPT/HCPCS: 99285; 96374; 76700; 71045; 96361; 96375; 80307; 80076; 80048; 83690; 85025; 87086; 36415; 81001; G0482; J2405; J2270; J7030; 81000; 81015; J2001

== ENCOUNTER 2024-06-26 17:17 | Inpatient (IN) | payer MEDICAID ==
[~2024-06-26] VITALS: Ht 167.6 cm; Wt 87.3 kg
[2024-06-26 17:48] VITALS: BP_SYST 157; PULSE 109; RESP 22; TEMP 97.7; O2SAT 97
[2024-06-26 17:49] LABS: BASOPHILS # (AUTO) 0.2 K/uL (0.0-0.2); BASOPHILS % (AUTO) 1.5 % (0.0-2.0); EOSINOPHILS # (AUTO) 0.1 K/uL (0.0-0.4); EOSINOPHILS % (AUTO) 0.7 % (0.0-4.0); HEMATOCRIT 48.1 % (36-54); HEMOGLOBIN 16.8 g/dL (14.0-18.0); LYMPHOCYTES # (AUTO) 3.9 K/uL (1.0-5.5); LYMPHOCYTES % (AUTO) 30.2 % (20.5-51.5); MEAN CORPUSCULAR HEMOGLOBIN 33 pg (27-31); MEAN CORPUSCULAR HGB CONC 35 % (32-36); MEAN CORPUSCULAR VOLUME 93 fL (79.0-98.0); MONOCYTES # (AUTO) 0.9 K/uL (0.0-1.0); MONOCYTES % (AUTO) 7.1 % (1.7-9.3); NEUTROPHILS # (AUTO) 7.9 K/uL (1.8-7.7); NEUTROPHILS % (AUTO) 60.5 % (40.0-70.0); PLATELET COUNT (AUTO) 304 K/uL (130-430); RED BLOOD CELL COUNT(AUTO) 5.16 MIL/uL (4.2-6.2); RED CELL DISTRIBUTION WIDTH 13.6 % (9.0-15.0)
[2024-06-26] MEDS: NACL 0.9% 1,000 ML IV ONE ×4 (17:50→20:13)
[2024-06-26] MEDS: DIPHENHYDRAMINE INJ 50 MG/ML VIAL IVP ONE (17:51)
[2024-06-26] MEDS: ONDANSETRON HCL 4 MG/2 ML VIAL IVP ONE (17:51)
[2024-06-26] MEDS: METOCLOPRAMIDE HCL 10 MG/2 ML VIAL IVP ONE (17:51)
[2024-06-26 18:12] LABS: ALBUMIN 4.7 g/dL (3.4-4.8); BILIRUBIN,DIRECT 0.3 mg/dL (0.0-0.3); CALCIUM 9.4 mg/dL (8.4-11.0); CREATININE 1.39 mg/dL (0.55-1.30); POTASSIUM 3.5 mmol/L (3.5-5.1); TOTAL BILIRUBIN 0.8 mg/dL (0.0-1.0); TOTAL PROTEIN, SERUM 8.7 g/dL (6.4-8.3)
[2024-06-26] MEDS: PANTOPRAZOLE SODIUM 40 MG/VIAL (PROTONIX) IVP ONE (18:42)
[2024-06-26] MEDS: MORPHINE 4 MG INJ. 4 MG/ML VIAL IVP ONE ×2 (18:44→20:12)
[2024-06-26] MEDS ORDERED: MORPHINE 2 MG/ML INJ. SYRINGE IVP PRN (20:45)
[2024-06-26] MEDS ORDERED: TRAZ-250 PO (20:54)
[2024-06-26] MEDS ORDERED: PANT40TA45 PO (20:54)
[2024-06-26 20:57] LABS: BILIRUBIN,URINE NEGATIVE (NEGATIVE); BLOOD, URINE NEGATIVE (NEGATIVE); CLARITY/URINE CLEAR (CLEAR); COLOR,URINE YELLOW (YELLOW); GLUCOSE,URINE NEGATIVE (NEGATIVE); KETONES,URINE 1+ (NEGATIVE); LEUKOCYTE ESTERASE ,URINE NEGATIVE (NEGATIVE); NITRITE, URINE NEGATIVE (NEGATIVE); PROTEIN URINE TRACE (NEGATIVE); UROBILINOGEN,URINE 0.2 (0.2-1.0)
[2024-06-26 21:04] LABS: RBC,URINE NONE SEEN /HPF (0-3); WBC,URINE 0-3 /HPF (0-3)
[2024-06-26 21:05] LABS: BACTERIA,URINE RARE /HPF (None Seen); MUCUS,URINE None Seen /LPF (None Seen)
[2024-06-26 21:37] VITALS: BP_SYST 149; PULSE 78; RESP 20; TEMP 98.6
[2024-06-26 21:40] VITALS: O2SAT 97
[2024-06-26] MEDS ORDERED: ONDANSETRON HCL 4 MG/2 ML VIAL IVP PRN (22:00)
[2024-06-26] MEDS: D5/0.45 NS 1,000 ML IV ONE (22:31)
[2024-06-26] MEDS: LOSARTAN POTASSIUM 25 MG TABLET PO ONE (22:31)
[2024-06-27] MEDS: MORPHINE 4 MG INJ. 4 MG/ML VIAL IVP PRN (00:03)
[2024-06-27 00:29] VITALS: BP_SYST 151; PULSE 71; RESP 20; TEMP 98.8; O2SAT 97
[2024-06-27 08:00] VITALS: BP_SYST 128; PULSE 71; RESP 16; TEMP 97.4
[2024-06-27] MEDS: DIPHENHYDRAMINE INJ 50 MG/ML VIAL IVP PRN (08:33)
[2024-06-27] MEDS: PANTOPRAZOLE SODIUM 40 MG TAB PO ONE (11:58)
[2024-06-27 12:00] VITALS: BP_SYST 126; PULSE 70; RESP 16; TEMP 98.2; O2SAT 95
[2024-06-27 12:34] LABS: BASOPHILS # (AUTO) 0.1 K/uL (0.0-0.2); EOSINOPHILS # (AUTO) 0.1 K/uL (0.0-0.4); HEMOGLOBIN 14.2 g/dL (14.0-18.0); LYMPHOCYTES # (AUTO) 2.8 K/uL (1.0-5.5); LYMPHOCYTES % (AUTO) 39.1 % (20.5-51.5); MONOCYTES # (AUTO) 0.7 K/uL (0.0-1.0); NEUTROPHILS # (AUTO) 3.5 K/uL (1.8-7.7)
[2024-06-27 12:45] LABS: CALCIUM 7.9 mg/dL (8.4-11.0); CREATININE 0.85 mg/dL (0.55-1.30); POTASSIUM 3.3 mmol/L (3.5-5.1)
[2024-06-27 13:00] LABS: BASOPHILS % (AUTO) 1.1 % (0.0-2.0); EOSINOPHILS % (AUTO) 1.1 % (0.0-4.0); HEMATOCRIT 40.7 % (36-54); MEAN CORPUSCULAR HEMOGLOBIN 33 pg (27-31); MEAN CORPUSCULAR HGB CONC 35 % (32-36); MEAN CORPUSCULAR VOLUME 94 fL (79.0-98.0); MONOCYTES % (AUTO) 10.2 % (1.7-9.3); NEUTROPHILS % (AUTO) 48.5 % (40.0-70.0); PLATELET COUNT (AUTO) 216 K/uL (130-430); RED BLOOD CELL COUNT(AUTO) 4.34 MIL/uL (4.2-6.2); RED CELL DISTRIBUTION WIDTH 13.8 % (9.0-15.0); WHITE BLOOD COUNT (AUTO) 7.3 K/uL (4.8-10.8)
[2024-06-27 16:45] VITALS: BP_SYST 141; PULSE 70; RESP 16; TEMP 97.5; O2SAT 97
[2024-06-27] MEDS ORDERED: NALOXONE HCL 0.4 MG/ML AMP (NARCAN) IVP PRN ×2 (18:15)
[2024-06-27] MEDS ORDERED: ACETAMINOPHEN 325 MG TABLET PO PRN (18:30)
[2024-06-27] MEDS: POTASSIUM CHLORIDE 20 MEQ TABLET.ER PO ONE (18:42)
[2024-06-27] MEDS: HYDROcodone/ACETAMIN 10-325 MG TAB PO PRN (18:43)
[2024-06-27 20:00] VITALS: BP_SYST 124; PULSE 73; RESP 18; TEMP 97.2; O2SAT 96; O2SAT 99
[2024-06-27] MEDS: traZODone HCL 50 MG TABLET (DESYREL) PO SCH (20:16)
[2024-06-27] MEDS: LORazepam 2 MG/ML VIAL IVP PRN (23:02)
[2024-06-28] VITALS: BP_SYST 124; PULSE 72; RESP 18; TEMP 97.6; O2SAT 99
[2024-06-28 08:00] VITALS: BP_SYST 145; PULSE 69; RESP 20; TEMP 97.7; O2SAT 96
[2024-06-28 08:10] LABS: BASOPHILS # (AUTO) 0.1 K/uL (0.0-0.2); BASOPHILS % (AUTO) 2.1 % (0.0-2.0); EOSINOPHILS # (AUTO) 0.1 K/uL (0.0-0.4); EOSINOPHILS % (AUTO) 2.2 % (0.0-4.0); HEMATOCRIT 44.1 % (36-54); HEMOGLOBIN 14.9 g/dL (14.0-18.0); LYMPHOCYTES # (AUTO) 2.8 K/uL (1.0-5.5); LYMPHOCYTES % (AUTO) 45.8 % (20.5-51.5); MEAN CORPUSCULAR HEMOGLOBIN 33 pg (27-31); MEAN CORPUSCULAR HGB CONC 34 % (32-36); MEAN CORPUSCULAR VOLUME 96 fL (79.0-98.0); MONOCYTES # (AUTO) 0.6 K/uL (0.0-1.0); MONOCYTES % (AUTO) 9.7 % (1.7-9.3); NEUTROPHILS # (AUTO) 2.5 K/uL (1.8-7.7); NEUTROPHILS % (AUTO) 40.2 % (40.0-70.0); PLATELET COUNT (AUTO) 223 K/uL (130-430); RED CELL DISTRIBUTION WIDTH 13.4 % (9.0-15.0); WHITE BLOOD COUNT (AUTO) 6.1 K/uL (4.8-10.8)
[2024-06-28 08:45] LABS: ALBUMIN 3.5 g/dL (3.4-4.8); CALCIUM 8.6 mg/dL (8.4-11.0); CREATININE 0.86 mg/dL (0.55-1.30); TOTAL BILIRUBIN 0.5 mg/dL (0.0-1.0); TOTAL PROTEIN, SERUM 6.8 g/dL (6.4-8.3)
[2024-06-28] MEDS ORDERED: HYDR-3917 PO (09:05)
[2024-06-28] MEDS: LOSARTAN POTASSIUM 50 MG TABLET (COZAAR) PO SCH (10:06)
[2024-06-28] MEDS: HYDROcodone/ACETAMIN 5-325 MG TAB (NORCO/ VICODIN) PO PRN (10:07)
[2024-06-28] MEDS: PANTOPRAZOLE SODIUM 40 MG TAB PO SCH (10:07)
[2024-06-28 12:00] VITALS: BP_SYST 157; PULSE 83; RESP 12; TEMP 97.7; O2SAT 98
[2024-06-28 13:10] VITALS: BP_SYST 139; PULSE 82; RESP 12; TEMP 98; O2SAT 99
== END 2024-06-28 13:50 | disposition home or self-care (01) | DRG 282 ==
LOC: SED 17:17 → STU 20:33 → SMU 06-27 11:01
PROVIDERS: ADMIT Preventive Medicine Preventive Medicine/Occupational Environmental Medicine; ATTEND Preventive Medicine Preventive Medicine/Occupational Environmental Medicine
DX: K85.20 Alcohol induced acute pancreatitis without necrosis or infection (principal); R65.10 Systemic inflammatory response syndrome (SIRS) of non-infectious origin without acute organ dysfunction; I10 Essential (primary) hypertension; R73.9 Hyperglycemia, unspecified; R74.01 Elevation of levels of liver transaminase levels; Z79.899 Other long term (current) drug therapy; Z88.8 Allergy status to other drugs, medicaments and biological substances
CPT/HCPCS: 36415; 80048; 80053; 80076; 81000; 81001; 81015; 82150; 83690; 85025; 96374; 99285; G0378; J1200; J2060; J2270; J2405; J2470; J2765

== ENCOUNTER 2024-08-01 19:19 | Inpatient (IN) | payer MEDICAID ==
[~2024-08-01] VITALS: Ht 167.6 cm; Wt 90.7 kg
[~2024-08-01 19:19] MED LIST changes: -ASPI-1393 PO; -CEPH-548 PO; -IBUP-1970 PO; -METR-154 PO; +PANT40TA45 PO; +TRAZ-250 PO
[2024-08-01 19:45] VITALS: BP_SYST 181; PULSE 83; RESP 20; TEMP 97.8; O2SAT 96
[2024-08-01] MEDS: NACL 0.9% 1,000 ML IV ONE (20:43)
[2024-08-01] MEDS: MORPHINE 4 MG INJ. 4 MG/ML VIAL IVP ONE (20:44)
[2024-08-01 20:48] LABS: BASOPHILS # (AUTO) 0.1 K/uL (0.0-0.2); EOSINOPHILS # (AUTO) 0.2 K/uL (0.0-0.4); HEMATOCRIT 45.7 % (36-54); HEMOGLOBIN 16.1 g/dL (14.0-18.0); LYMPHOCYTES # (AUTO) 2.9 K/uL (1.0-5.5); LYMPHOCYTES % (AUTO) 29.4 % (20.5-51.5); MEAN CORPUSCULAR HEMOGLOBIN 32 pg (27-31); MEAN CORPUSCULAR HGB CONC 35 % (32-36); MEAN CORPUSCULAR VOLUME 91 fL (79.0-98.0); MONOCYTES # (AUTO) 0.8 K/uL (0.0-1.0); MONOCYTES % (AUTO) 8.7 % (1.7-9.3); NEUTROPHILS # (AUTO) 5.8 K/uL (1.8-7.7); NEUTROPHILS % (AUTO) 58.9 % (40.0-70.0); PLATELET COUNT (AUTO) 226 K/uL (130-430); RED BLOOD CELL COUNT(AUTO) 5.03 MIL/uL (4.2-6.2); RED CELL DISTRIBUTION WIDTH 13.5 % (9.0-15.0); WHITE BLOOD COUNT (AUTO) 9.8 K/uL (4.8-10.8)
[2024-08-01] MEDS: ONDANSETRON HCL 4 MG/2 ML VIAL IVP ONE (21:24)
[2024-08-01] MEDS: HYDROmorphone 1 MG/ML INJ. CARTRIDGE IVP ONE (21:24)
[2024-08-01 21:31] LABS: ALANINE AMINOTRANSFERASE 31 U/L (12-78); ALBUMIN 4.1 g/dL (3.4-4.8); ANION GAP 6 (5-15); ASPARTATE AMINOTRANSFERASE 36 U/L (10-37); BILIRUBIN,DIRECT 0.3 mg/dL (0.0-0.3); CALCIUM 9.2 mg/dL (8.4-11.0); CARBON DIOXIDE 31 mmol/L (23-29); CHLORIDE 97 mmol/L (98-107); CREATININE 0.96 mg/dL (0.55-1.30); GFR AFRICAN AMERICAN 112 mL/min (>90); GFR NON AFRICAN-AMERICAN 93 mL/min (>90); GLUCOSE 106 mg/dL (74-106); LIPASE 238 U/L (16-77); POTASSIUM 3.4 mmol/L (3.5-5.1); SODIUM SERUM 134 mmol/L (136-145); TOTAL BILIRUBIN 0.8 mg/dL (0.0-1.0); TOTAL PROTEIN, SERUM 7.5 g/dL (6.4-8.3); UREA NITROGEN, BLOOD 15 mg/dL (8-21)
[2024-08-01 21:36] LABS: ALCOHOL, BLOOD < 3 mg/dL (<10)
[2024-08-01] MEDS ORDERED: ACETAMINOPHEN 325 MG TABLET PO PRN (23:00)
[2024-08-02] VITALS (7 sets, daily range): BP systolic 140–179; PULSE 58–108; RESP 18–25; TEMP 97–98.2; O2SAT 94–100
[2024-08-02] MEDS: MORPHINE 2 MG/ML INJ. SYRINGE IVP PRN ×2 (01:07→15:08)
[2024-08-02] MEDS: NACL 0.9% 1,000 ML IV SCH (01:14)
[2024-08-02] MEDS ORDERED: NALOXONE HCL 0.4 MG/ML AMP (NARCAN) IVP PRN (05:15)
[2024-08-02] MEDS: MORPHINE 2 MG/ML INJ. SYRINGE IVP ONE (05:59)
[2024-08-02] MEDS: MORPHINE 4 MG INJ. 4 MG/ML VIAL ONE (08:18)
[2024-08-02 08:54] LABS: CHOLESTEROL 155 mg/dL (<200); HDL CHOLESTEROL 61 mg/dL (>45); TRIGLYCERIDES 106 mg/dL (30-150)
[2024-08-02] MEDS: MORPHINE 4 MG INJ. 4 MG/ML VIAL IVP ONE (09:07)
[2024-08-02] MEDS: PANTOPRAZOLE SODIUM 40 MG TAB PO SCH (09:53)
[2024-08-02] MEDS: LOSARTAN POTASSIUM 50 MG TABLET (COZAAR) PO SCH (09:55)
[2024-08-02] MEDS: LR 1,000 ML IV SCH (09:59)
[2024-08-02] MEDS ORDERED: DIATR MEGLU/DIATRIZ SOD 30 ML SOLUTION PO ONE (10:24)
[2024-08-02] MEDS ORDERED: hydrALAZINE HCL 20 MG/ML VIAL IVP PRN (10:45)
[2024-08-02] MEDS: PANTOPRAZOLE SODIUM 40 MG/VIAL (PROTONIX) IVP ONE (11:59)
[2024-08-02] MEDS: KETOROLAC TROMETHAMINE 30 MG VIAL IVP PRN (12:13)
[2024-08-02 12:23] LABS: BARBITURATE, URINE NEGATIVE (NEG <=200); BENZODIAZEPINE, URINE NEGATIVE (NEG <=150); CANNABINOID, URINE POSITIVE (NEG <=50); COCAINE, URINE POSITIVE (NEG <=150); METHAMPHETAMINES SCREEN,URINE NEGATIVE (NEG <=500); OPIATE, URINE POSITIVE (NEG <=100); PHENCYCLIDINE SCREEN,URINE NEGATIVE (NEG <=25); UR TRICYCLIC ANTIDEPRESSANTS NEGATIVE (NEG <=300); URINE AMPHETAMINE NEGATIVE (NEG <=500); URINE METHADONE NEGATIVE (NEG <=200); URINE OXYCODONE SCREEN NEGATIVE (NEG <=100)
[2024-08-02] MEDS: hydrALAZINE HCL 20 MG/ML VIAL IVP PRN (18:52)
[2024-08-02] MEDS: traZODone HCL 50 MG TABLET (DESYREL) PO SCH (20:55)
[2024-08-03] VITALS (7 sets, daily range): BP systolic 145–161; PULSE 65–92; RESP 16–18; TEMP 97–98.2; O2SAT 96–99
[2024-08-03] MEDS: HYDROcodone/ACETAMIN 5-325 MG TAB (NORCO/ VICODIN) PO PRN (08:20)
[2024-08-03] MEDS ORDERED: PANTOPRAZOLE SODIUM 40 MG/VIAL (PROTONIX) IVP SCH (09:00)
[2024-08-03] MEDS: POLYETHYLENE GLYCOL 3350, 17 GM/ POWD.PACK PO ONE (10:48)
[2024-08-03] MEDS: MINERAL OIL 30 ML UDC PO ONE (10:48)
[2024-08-03] MEDS: ONDANSETRON HCL 4 MG/2 ML VIAL IM PRN (10:59)
[2024-08-03] MEDS: KETOROLAC TROMETHAMINE 30 MG VIAL IM ONE (15:48)
[2024-08-03] MEDS ORDERED: KETOROLAC TROMETHAMINE 30 MG VIAL IVP PRN (18:00)
[2024-08-04 08:00] VITALS: BP_SYST 149; PULSE 61; RESP 16; TEMP 98; O2SAT 98
[2024-08-04 08:58] LABS: BASOPHILS % (AUTO) 0.7 % (0.0-2.0); EOSINOPHILS # (AUTO) 0.1 K/uL (0.0-0.4); EOSINOPHILS % (AUTO) 1.8 % (0.0-4.0); HEMOGLOBIN 15.4 g/dL (14.0-18.0); LYMPHOCYTES # (AUTO) 2.3 K/uL (1.0-5.5); LYMPHOCYTES % (AUTO) 30.6 % (20.5-51.5); MEAN CORPUSCULAR HEMOGLOBIN 32 pg (27-31); MEAN CORPUSCULAR HGB CONC 34 % (32-36); MEAN CORPUSCULAR VOLUME 93 fL (79.0-98.0); MONOCYTES # (AUTO) 0.8 K/uL (0.0-1.0); MONOCYTES % (AUTO) 10.5 % (1.7-9.3); NEUTROPHILS # (AUTO) 4.3 K/uL (1.8-7.7); NEUTROPHILS % (AUTO) 56.4 % (40.0-70.0); PLATELET COUNT (AUTO) 216 K/uL (130-430); RED BLOOD CELL COUNT(AUTO) 4.87 MIL/uL (4.2-6.2); RED CELL DISTRIBUTION WIDTH 13.4 % (9.0-15.0); WHITE BLOOD COUNT (AUTO) 7.6 K/uL (4.8-10.8)
[2024-08-04] MEDS: POLYETHYLENE GLYCOL 3350, 17 GM/ POWD.PACK PO SCH (09:00)
[2024-08-04 09:13] LABS: ALBUMIN 3.9 g/dL (3.4-4.8); CALCIUM 9.2 mg/dL (8.4-11.0); CREATININE 0.77 mg/dL (0.55-1.30); POTASSIUM 3.6 mmol/L (3.5-5.1); TOTAL BILIRUBIN 0.8 mg/dL (0.0-1.0); TOTAL PROTEIN, SERUM 7.5 g/dL (6.4-8.3)
[2024-08-04 09:30] VITALS: O2SAT 98
[2024-08-04 10:00] VITALS: BP_SYST 149; PULSE 61; RESP 18; TEMP 98.1; O2SAT 98
[2024-08-04 12:00] VITALS: BP_SYST 154; PULSE 81; RESP 14; TEMP 97.9; O2SAT 97
[2024-08-04 13:46] VITALS: BP_SYST 154; PULSE 81; RESP 14; TEMP 97.9; O2SAT 97
[2024-08-04] MEDS ORDERED: TRAZ-250 PO (19:41)
[2024-08-04] MEDS ORDERED: LOSA-413 PO (19:41)
[2024-08-04] MEDS ORDERED: PANT40TA45 PO (19:41)
[2024-08-04] MEDS ORDERED: HYDR-3917 PO (19:41)
== END 2024-08-04 14:02 | disposition home or self-care (01) | DRG 282 ==
LOC: SED 19:19 → STU 22:50 → SMU 08-02 22:23
PROVIDERS: ADMIT Student in an Organized Health Care Education/Training Program; ATTEND Student in an Organized Health Care Education/Training Program
DX: K85.90 Acute pancreatitis without necrosis or infection, unspecified (principal); E87.1 Hypo-osmolality and hyponatremia; E86.0 Dehydration; F10.10 Alcohol abuse, uncomplicated; F14.10 Cocaine abuse, uncomplicated; I10 Essential (primary) hypertension; Z79.899 Other long term (current) drug therapy; Z88.8 Allergy status to other drugs, medicaments and biological substances; K86.1 Other chronic pancreatitis
CPT/HCPCS: 36415; 80048; 80053; 80061; 80076; 80307; 83605; 83690; 84484; 85025; 93005; 99285; G0378; G0482; J0360; J1171; J1885; J2270; J2405; J7030; J7120; Q9964; Q9967